=== PATIENT | male | born 1995 | race Caucasian/White ===

== ENCOUNTER → 2018-07-09 | Outpatient (CLI) | payer OTHER | LOC: M OUTALCOH 08:02 | PROVIDERS: ATTEND Psychiatry & Neurology Psychiatry | DX: F10.10 Alcohol abuse, uncomplicated (principal) ==

== ENCOUNTER → 2018-08-13 | Outpatient (RCR) | payer OTHER | LOC: M OUTALCOH 07-27 08:50 | PROVIDERS: ATTEND Psychiatry & Neurology Psychiatry | DX: F10.10 Alcohol abuse, uncomplicated (principal) ==

== ENCOUNTER → 2018-09-29 | Outpatient (CLI) | payer SELFPAY | LOC: M OUTALCOH 09:45 | PROVIDERS: ATTEND Psychiatry & Neurology Psychiatry | DX: F10.10 Alcohol abuse, uncomplicated (principal) ==

== ENCOUNTER 2018-11-10 16:00 | Outpatient (RCR) | payer SELFPAY | END 2018-11-13 | LOC: M OUTALCOH 16:00 | PROVIDERS: ATTEND Psychiatry & Neurology Psychiatry | DX: F10.10 Alcohol abuse, uncomplicated (principal) ==

== ENCOUNTER 2018-12-08 16:00 | Outpatient (RCR) | payer SELFPAY | END 2018-12-13 | LOC: M OUTALCOH 16:00 | PROVIDERS: ATTEND Psychiatry & Neurology Psychiatry | DX: F10.10 Alcohol abuse, uncomplicated (principal) ==

== ENCOUNTER 2019-01-12 12:50 | Outpatient (RCR) | payer OTHER, SELFPAY | END 2019-01-13 | LOC: M OUTALCOH 12:50 | PROVIDERS: ATTEND Psychiatry & Neurology Psychiatry | DX: F10.10 Alcohol abuse, uncomplicated (principal) ==

== ENCOUNTER 2019-02-09 14:56 | Outpatient (RCR) | payer OTHER, SELFPAY | END 2019-02-13 | LOC: M OUTALCOH 14:56 | PROVIDERS: ATTEND Psychiatry & Neurology Psychiatry | DX: F10.10 Alcohol abuse, uncomplicated (principal) ==

== ENCOUNTER → 2019-03-15 | Outpatient (RCR) | payer BC, OTHER, SELFPAY | LOC: M OUTALCOH 02-17 07:54 | PROVIDERS: ATTEND Psychiatry & Neurology Psychiatry | DX: F10.10 Alcohol abuse, uncomplicated (principal) ==

== ENCOUNTER 2019-04-08 15:51 | Outpatient (RCR) | payer BC | END 2019-04-15 | LOC: M OUTALCOH 15:51 | PROVIDERS: ATTEND Psychiatry & Neurology Psychiatry | DX: F10.10 Alcohol abuse, uncomplicated (principal) ==

== ENCOUNTER 2019-05-19 15:59 | Outpatient (RCR) | payer BC | END 2019-06-15 | LOC: M OUTALCOH 15:59 | PROVIDERS: ATTEND Psychiatry & Neurology Psychiatry | DX: F10.10 Alcohol abuse, uncomplicated (principal) ==

== ENCOUNTER 2019-06-30 08:55 | Outpatient (RCR) | payer BC | END 2019-07-16 | LOC: M OUTALCOH 08:55 | PROVIDERS: ATTEND Psychiatry & Neurology Addiction Medicine | DX: F10.10 Alcohol abuse, uncomplicated (principal) ==

== ENCOUNTER 2019-08-11 09:52 | Outpatient (RCR) | payer BC | END 2019-08-14 | LOC: M OUTALCOH 09:52 | PROVIDERS: ATTEND Psychiatry & Neurology Addiction Medicine | DX: F10.10 Alcohol abuse, uncomplicated (principal) ==

== ENCOUNTER 2019-09-15 13:02 | Outpatient (RCR) | payer BC | END 2019-10-14 | LOC: M OUTALCOH 13:02 | PROVIDERS: ATTEND Psychiatry & Neurology Addiction Medicine | DX: F10.10 Alcohol abuse, uncomplicated (principal) ==

== ENCOUNTER 2019-12-24 09:00 | Outpatient (RCR) | payer OTHER, SELFPAY | END 2020-01-14 | LOC: M OUTALCOH 09:00 | PROVIDERS: ATTEND Psychiatry & Neurology Addiction Medicine | DX: F10.10 Alcohol abuse, uncomplicated (principal) ==